=== PATIENT | female | born 1980 | race Caucasian/White ===

== ENCOUNTER 2016-02-29 18:10 | Emergency (ER) | payer OTHER ==
[2016-02-29 19:00] LABS: BASOPHILS 0.3 % (0.0-2.0); EOSINOPHILS 5.3 % (0-7); HEMATOCRIT 42.5 % (36.0-48.0); HEMOGLOBIN 14.1 g/dL (12-16); IMMATURE GRANULOCYTES 0.1 % (0-5); LYMPHOCYTES 17.2 % (15-50); MCH 29.9 pg (26.0-34.0); MCHC 33.2 g/dL (31.0-37.0); MEAN PLATELET VOLUME 10.2 fL (7.4-10.4); MONOCYTES 6.6 % (2-11); NEUTROPHILS 70.5 % (40-80); PLATELET COUNT 269 10x3/uL (130-400); RBC 4.72 10x6/uL (4.00-5.40); WBC 7.2 10x3/uL (4.8-10.8)
[2016-02-29 19:05] LABS: APPEARANCE CLEAR (CLEAR); BILIRUBIN NEGATIVE (NEGATIVE); COLOR YELLOW (YELLOW); GLUCOSE NEGATIVE (NEGATIVE); KETONE NEGATIVE (NEGATIVE); LEUKOCYTE ESTERASE NEGATIVE (NEGATIVE); NITRITE NEGATIVE (NEGATIVE); PROTEIN NEGATIVE (NEGATIVE); UROBILINOGEN NORMAL (NORMAL)
[2016-02-29 19:15] LABS: ALBUMIN 4.6 g/dL (3.4-5.0); ALKALINE PHOSPHATASE 74 U/L (46-116); ALT (SGPT) 48 U/L (10-68); AMYLASE - SERUM 37 U/L (25-115); BILIRUBIN - TOTAL 0.33 mg/dL (0.2-1.3); CALC OSMOLALITY 278 mosm/kg (275-300); CALCIUM 9.6 mg/dL (8.5-10.1); CARBON DIOXIDE 28.1 mmol/L (21.0-32.0); CHLORIDE - SERUM 103 mmol/L (98-107); CREATININE - SERUM 0.8 mg/dL (0.6-1.3); GLUCOSE 93 mg/dL (74-106); LIPASE 85 U/L (73-393); POTASSIUM - SERUM 3.9 mmol/L (3.5-5.1); PROTEIN - SERUM 8.3 g/dL (6.4-8.2); SODIUM 141 mmol/L (136-145); UREA NITROGEN 8 mg/dL (7-18); eGFR NON AFRICAN AMERICAN 87 mL/min (90-120)
== END 2016-02-29 23:46 | disposition home or self-care (01) ==
LOC: D.ER 18:10
PROVIDERS: Emergency Medicine
DX: R10.84 Generalized abdominal pain (principal); R63.5 Abnormal weight gain; F17.200 Nicotine dependence, unspecified, uncomplicated

== ENCOUNTER 2018-09-28 18:30 | Emergency (ER) | payer SELFPAY ==
[2018-09-28 18:34] VITALS: Ht 162.6 cm
[2018-09-28] MEDS ORDERED: XANAX0.25 MG PO (18:36)
[2018-09-28] MEDS ORDERED: HYDROCODON-ACE1 EA10 PO (21:00)
[2018-09-28 21:08] VITALS: BP 132/90
== END 2018-09-28 21:09 | disposition home or self-care (01) ==
LOC: D.ER 18:30
DX: S05.11XA Contusion of eyeball and orbital tissues, right eye, initial encounter (principal); S00.83XA Contusion of other part of head, initial encounter; W10.9XXA Fall (on) (from) unspecified stairs and steps, initial encounter; Y93.89 Activity, other specified; Y92.89 Other specified places as the place of occurrence of the external cause

== ENCOUNTER 2019-01-14 08:59 | Emergency (ER) | payer SELFPAY ==
[~2019-01-14] VITALS: Ht 162.6 cm; Wt 60.5 kg
[~2019-01-14 08:59] MED LIST: HYDROCODON-ACE1 EA10 PO; XANAX0.25 MG PO
[2019-01-14 09:06] VITALS: Ht 162.6 cm; Wt 60.5 kg
[2019-01-14] MEDS ORDERED: IBUPROFEN800 MG PO (10:10)
[2019-01-14] MEDS ORDERED: CYCLOBENZAPRINE10 MG PO (10:10)
[2019-01-14] MEDS ORDERED: ACETAMINOPHEN500 M1 PO (10:10)
[2019-01-14 10:40] VITALS: BP 123/97
== END 2019-01-14 10:39 | disposition home or self-care (01) ==
LOC: D.ER 08:59
DX: S63.501A Unspecified sprain of right wrist, initial encounter (principal); W19.XXXA Unspecified fall, initial encounter; Y93.9 Activity, unspecified; Y92.9 Unspecified place or not applicable; M79.601 Pain in right arm